=== PATIENT | male | born 1955 | race Caucasian/White ===

== ENCOUNTER 2025-05-18 03:07 | Inpatient (IN) | payer BC ==
[~2025-05-18] VITALS: Ht 177.8 cm; Wt 87.5 kg
[2025-05-18 03:10] VITALS: O2SAT 99
[2025-05-18 03:49] LABS: BASOPHILS % 0.5 % (0.0-2.0); EOSINOPHILS % 0.2 % (0.0-5.0); HEMATOCRIT. 45.3 % (42.0-52.0); HEMOGLOBIN. 15.1 g/dL (14.0-18.0); LYMPHOCYTES % 14.4 % (20.0-50.0); MEAN PLATELET VOLUME 7.7 fl (7.4-10.4); MONOCYTES % 8.3 % (2.0-8.0); NEUTROPHILS % 76.6 % (40.0-76.0); PLATELET 217 x1000/uL (130-400); RED BLOOD CELL COUNT 4.97 mill/uL (4.7-6.1); RED CELL DISTRIBUTION WIDTH 13.9 % (11.6-14.6)
[2025-05-18 04:00] LABS: INR 1.0
[2025-05-18 04:09] LABS: CREATININE 1.0 mg/dL (0.6-1.3); TROPONIN I HIGH SENSITIVITY 9 ng/L (3.0-53); UREA NITROGEN BLOOD 11 mg/dL (9-23)
[2025-05-18 04:10] LABS: ETHANOL BLOOD < 10 mg/dL (<10); PROTEIN TOTAL 6.7 g/dL (6.0-8.3)
[2025-05-18 04:11] LABS: ASPARTATE AMINOTRANSFERASE 31 IU/L (<34); BILIRUBIN DIRECT 0.1 mg/dL (<=3.0); BILIRUBIN TOTAL 0.5 mg/dL (0.1-1.0)
[2025-05-18] MEDS: IOHEXOL-350 100 ML BOTTLE ONE (04:15)
[2025-05-18] MEDS: CLOPIDOGREL 75MG TABLET PO ONE (04:34)
[2025-05-18] MEDS: ASPIRIN 325MG TABLET PO ONE (04:34)
[2025-05-18 04:37] LABS: CLARITY URINE CLOUDY (CLEAR); COLOR URINE YELLOW (YELLOW); GLUCOSE URINE NEGATIVE (NEGATIVE); KETONES URINE NEGATIVE (NEGATIVE); LEUKOCYTE ESTERASE URINE NEGATIVE (NEGATIVE); NITRITE URINE NEGATIVE (NEGATIVE); OCCULT BLOOD URINE NEGATIVE (NEGATIVE); PH URINE 5.5 (4.5-8.0); PROTEIN URINE NEGATIVE (NEGATIVE); SPECIFIC GRAVITY URINE 1.020 (1.005-1.030); UROBILINOGEN URINE 0.2 E.U./dL (0.2-1.0)
[2025-05-18 04:53] LABS: BACTERIA URINE NONE SEEN; RBC URINE NONE SEEN /hpf (0-2); SQUAMOUS EPITHELIAL CELL URINE NONE SEEN /lpf (RARE/1+); WBC URINE NONE SEEN /hpf (0-2)
[2025-05-18] MEDS ORDERED: DEXTROSE 50% WATER 50ML SYRINGE IV PRN (05:00)
[2025-05-18] MEDS ORDERED: IPRATROPIUM/ALBUTEROL 0.5-3(2.5)MG/3ML NEB HHN PRN (05:00)
[2025-05-18] MEDS ORDERED: ACETAMINOPHEN 325MG TABLET PO PRN ×2 (05:00)
[2025-05-18] MEDS ORDERED: ONDANSETRON HCL 4MG/2ML INJ IV PRN (05:00)
[2025-05-18 05:08] LABS: *AMPHETAMINES SCREEN URINE PRESUMPTIVE POSITIVE (NEGATIVE); *BARBITURATES SCREEN URINE NEGATIVE (NEGATIVE); *BENZODIAZEPINES SCREEN URINE NEGATIVE (NEGATIVE); *COCAINE SCREEN URINE NEGATIVE (NEGATIVE); CANNABINOID URINE SCREEN NEGATIVE (NEGATIVE); ECSTASY MDMA SCREEN URINE NEGATIVE (NEGATIVE); METHADONE URINE SCREEN NEGATIVE (NEGATIVE); OPIATES URINE SCREEN NEGATIVE (NEGATIVE); PHENCYCLIDINE URINE SCREEN NEGATIVE (NEGATIVE)
[2025-05-18 05:38] LABS: TRIGLYCERIDE 234.0 mg/dL (0-150)
[2025-05-18 05:39] LABS: LDL CHOLESTEROL 120.0 mg/dL (5-100)
[2025-05-18 05:43] LABS: T4 FREE 1.24 ng/dL (0.89-1.76)
[2025-05-18 08:00] VITALS: BP 168/90; PULSE 102; RESP 18; TEMP 36.9; O2SAT 98
[2025-05-18] MEDS: BLOOD SUGAR DIAGNOSTIC STRIP TEST SCH (08:00)
[2025-05-18] MEDS: ASPIRIN 81MG EC TABLET PO SCH (08:33)
[2025-05-18] MEDS: MAGNESIUM 2 G PREMIX 50 ML IV NR (08:34)
[2025-05-18] MEDS: PANTOPRAZOLE SODIUM 40 MG/VIAL IV SCH (08:34)
[2025-05-18] MEDS: CLOPIDOGREL 75MG TABLET PO SCH (08:37)
[2025-05-18] MEDS: ATORVASTATIN CALCIUM 40MG TABLET PO SCH (08:55)
[2025-05-18] MEDS: LORAZEPAM 2MG/ML UD SYRINGE IV PRN (10:36)
[2025-05-18 10:57] VITALS: BP 168/90; PULSE 102; RESP 18; TEMP 36.9184
[2025-05-18 12:00] VITALS: BP 162/98; PULSE 89; RESP 18; TEMP 36.7; O2SAT 98
[2025-05-18] MEDS: LABETALOL 5MG/ML 4ML INJ IV PRN (14:08)
[2025-05-18 16:00] VITALS: BP 146/81; PULSE 75; RESP 18; TEMP 36.5; O2SAT 97
[2025-05-18 16:33] LABS: BASOPHILS % 0.3 % (0.0-2.0); EOSINOPHILS % 1.1 % (0.0-5.0); HEMATOCRIT. 45.1 % (42.0-52.0); HEMOGLOBIN. 15.0 g/dL (14.0-18.0); LYMPHOCYTES % 18.9 % (20.0-50.0); MEAN PLATELET VOLUME 8.1 fl (7.4-10.4); MONOCYTES % 9.4 % (2.0-8.0); NEUTROPHILS % 70.3 % (40.0-76.0); PLATELET 212 x1000/uL (130-400); RED BLOOD CELL COUNT 4.91 mill/uL (4.7-6.1); RED CELL DISTRIBUTION WIDTH 13.8 % (11.6-14.6)
[2025-05-18 16:53] LABS: CREATININE 0.9 mg/dL (0.6-1.3); UREA NITROGEN BLOOD 8 mg/dL (9-23)
[2025-05-18] MEDS ORDERED: CLONIDINE 0.1MG TABLET PO PRN (17:45)
[2025-05-18 20:00] VITALS: BP 162/88; PULSE 82; RESP 18; TEMP 36.1; O2SAT 98
[2025-05-19] VITALS: BP 160/73; PULSE 89; RESP 18; TEMP 36.3; O2SAT 99
[2025-05-19 04:00] VITALS: BP 147/84; PULSE 84; RESP 18; TEMP 36.2; O2SAT 96
[2025-05-19 06:50] LABS: BASOPHILS % 0.3 % (0.0-2.0); EOSINOPHILS % 3.1 % (0.0-5.0); HEMATOCRIT. 45.2 % (42.0-52.0); HEMOGLOBIN. 15.1 g/dL (14.0-18.0); LYMPHOCYTES % 21.2 % (20.0-50.0); MEAN PLATELET VOLUME 8.1 fl (7.4-10.4); MONOCYTES % 9.6 % (2.0-8.0); NEUTROPHILS % 65.8 % (40.0-76.0); PLATELET 211 x1000/uL (130-400); RED BLOOD CELL COUNT 4.93 mill/uL (4.7-6.1); RED CELL DISTRIBUTION WIDTH 14.0 % (11.6-14.6)
[2025-05-19 07:32] LABS: CREATININE 1.0 mg/dL (0.6-1.3)
[2025-05-19 07:34] LABS: UREA NITROGEN BLOOD 10 mg/dL (9-23)
[2025-05-19 08:00] VITALS: BP 147/84; PULSE 74; RESP 18; TEMP 36.1; O2SAT 95
[2025-05-19 10:54] LABS: TRIGLYCERIDE 224.0 mg/dL (0-150)
[2025-05-19 10:55] LABS: LDL CHOLESTEROL 118.0 mg/dL (5-100)
[2025-05-19 10:57] LABS: T4 FREE 1.33 ng/dL (0.89-1.76)
[2025-05-19 12:00] VITALS: BP 133/82; PULSE 76; RESP 18; TEMP 36.8; O2SAT 98
[2025-05-19 16:00] VITALS: BP 140/88; PULSE 82; RESP 18; TEMP 36.2; O2SAT 98
[2025-05-19 17:30] LABS: CREATINE KINASE MB FRACTION 5.1 ng/mL (0.5-3.6); TROPONIN I HIGH SENSITIVITY 9 ng/L (3.0-53)
[2025-05-19 20:00] VITALS: BP 133/76; PULSE 75; RESP 18; TEMP 36.2; O2SAT 96
[2025-05-20 01:25] LABS: TROPONIN I HIGH SENSITIVITY 8 ng/L (3.0-53)
[2025-05-20 01:27] LABS: CREATINE KINASE MB FRACTION 3.7 ng/mL (0.5-3.6)
[2025-05-20 04:00] VITALS: BP 144/82; PULSE 85; RESP 18; TEMP 36.3; O2SAT 98
[2025-05-20 08:00] VITALS: BP 148/82; PULSE 78; RESP 18; TEMP 36.7; O2SAT 98
[2025-05-20 08:23] LABS: TROPONIN I HIGH SENSITIVITY 6 ng/L (3.0-53)
[2025-05-20 08:24] LABS: CREATINE KINASE MB FRACTION 2.6 ng/mL (0.5-3.6)
[2025-05-20 11:37] VITALS: BP 148/85; PULSE 74; RESP 18; TEMP 36.5; O2SAT 98
[2025-05-20 15:37] VITALS: BP 137/96; PULSE 88; RESP 18; TEMP 36.6; O2SAT 98
[2025-05-20 19:24] LABS: CREATININE 1.0 mg/dL (0.6-1.3); UREA NITROGEN BLOOD 8 mg/dL (9-23)
[2025-05-20 20:00] VITALS: BP 139/85; PULSE 76; RESP 18; TEMP 36.2; O2SAT 97
[2025-05-21] VITALS: BP 147/81; PULSE 92; RESP 18; TEMP 36.6; O2SAT 97
[2025-05-21 04:00] VITALS: BP 145/74; PULSE 71; RESP 18; TEMP 36.2; O2SAT 97
[2025-05-21 08:00] VITALS: BP 132/87; PULSE 91; RESP 18; TEMP 36.5; O2SAT 97
[2025-05-21] MEDS: FAMOTIDINE 20MG/2ML VIAL IV SCH (10:48)
[2025-05-21] MEDS ORDERED: ASPI-864 MT (12:36)
[2025-05-21] MEDS ORDERED: CLOP-31 PO (12:36)
[2025-05-21] MEDS ORDERED: ATOR-2 MT (12:36)
[2025-05-21 15:13] VITALS: BP 127/63; PULSE 74; RESP 20; TEMP 98.3
[2025-05-21 16:00] VITALS: BP 140/94; PULSE 88; RESP 18; TEMP 36.5; O2SAT 98
== END 2025-05-21 17:27 | disposition home or self-care (01) | DRG 66 ==
LOC: ER 03:28 → 8WST 04:11
PROVIDERS: ADMIT Hospitalist; ATTEND Hospitalist
DX: I63.9 Cerebral infarction, unspecified (principal); E78.5 Hyperlipidemia, unspecified; I10 Essential (primary) hypertension; E83.42 Hypomagnesemia; Z79.02 Long term (current) use of antithrombotics/antiplatelets; Z79.82 Long term (current) use of aspirin; Z91.148 Patient's other noncompliance with medication regimen for other reason
CPT/HCPCS: 36415; 70496; 70498; 70551; 71045; 80048; 80061; 80076; 80305; 80320; 81003; 82550; 82553; 82962; 83036; 83735; 83880; 84439; 84443; 84484; 85025; 85379; 93005; 93970; 97116; 97162; 97166; 97530; 99291; A4606; J1308; J2060; J2470; J3475; J3490; Q9967; G0480